=== PATIENT | male | born 1985 | race African-American/Black ===

== ENCOUNTER 2017-10-19 10:52 | Emergency (ER) | payer BC ==
[2017-10-19] MEDS ORDERED: KETOROLAC TROMETHAMINE 60 MG/2 ML VIAL IM ONE ×2 (11:21→11:54)
--- NOTE | 2017-10-19 11:24 | ERNOTE ---
Lower Extremity HPI - Narrative Date of Service: 10/19/17 - General Lower Extremities Pain: leg: left Time Seen by Provider: 10/19/17 11:12 Source: patient Exam Limitations: no limitations - Immun/Allergies/Home Medications Immunizations: IMMUNIZATION HX Immunizations Up to Date Yes History of Influenza Vaccine No Hx Pneumococcal Vaccination No Allergies/Adverse Reactions: Allergies Allergy/AdvReac Type Severity Reaction Status Date / Time No Known Allergies Allergy Unverified 10/19/17 11:04 Home Medications: HOME MEDICATIONS Cyclobenzaprine HCl [Flexeril] 10 mg PO TID PRN #30 tab 10/19/17 [Last Taken Unknown] Lisinopril [Zestril] 10 mg PO DAILY 10/19/17 [Last Taken Unknown] Naproxen [Naprosyn] 500 mg PO BID PRN #60 tab 10/19/17 [Last Taken Unknown] - History of Present Illness Narrative: Pt. comes in with c/o L post calf pain for 2 days. Pt. states that he was walking and felt a pop in his calf 2 days ago and states that there has been pain ever since when he moves his foot or walks. Pt. states that rest completely alleviates the pain. Pt. denies any prehospital treatment. Location of Incident: home Method of Injury: Reports: no apparent injury Modifying Factors - (Improves): Reports: rest Modifying Factors - (Worsens): Reports: movement Associated Symptoms: Reports: popping sensation Other Injuries: Reports: none Subsequent Symptoms: Denies: sensory loss, numbness, motor loss Prior Treament: Denies: recently seen, treated by physician, recently hospitalized, similar symptoms before, currently on antibiotics Review of Systems - Review of Systems Constitutional: Present: no symptoms reported. Absent: fever, chills, weakness , fatigue, malaise EYE: Present: no symptoms reported ENT: Present: no symptoms reported Respiratory: Present: no symptoms reported. Absent: shortness of breath, cough , wheezing Cardiology: Present: no symptoms reported. Absent: chest pain, palpitations, edema Gastrointestinal/Abdominal: Present: no symptoms reported Genitourinary: Present: no symptoms reported Musculoskeletal: Present: muscle pain - L calf. Absent: back pain Skin: Present: no symptoms reported Neurological: Present: no symptoms reported Endocrine: Present: no symptoms reported All Other Systems: All systems neg except as marked - Patient's Past Medical History Patient History - Medical: Seizures Patient History - Cardiac/Respiratory: Hypertension Patient History - Cancer: No Hx of Cancer Patient History - Surgical Procedures: No surgical history Patient History - Other: None - Social History Living Situations: home Psych History: No pertinent hx Smoking Status: Current every day smoker Alcohol Use: occasionally Drug Use: none - Immunizations Immunizations Up to Date: Yes Hx Pneumococcal Vaccination: No History of Influenza Vaccine: No Physical Exam - Physical Exam General Appearance: Present: wd/wn, alert, no apparent distress Head Exam: Present: normal inspection, no evidence of injury Eye Exam: Normal inspection: bilateral Ears, Nose, Throat: Present: normal ENT inspection Neck: Present: normal inspection, nontender, supple, full range of motion Respiratory: Present: no respiratory distress, normal breath sounds, no accessory muscle use, chest nontender, lungs clear Cardiovascular/Chest: Present: regular rate, rhythm, no murmur, normal peripheral pulses Back Exam: Present: normal inspection Extremity Exam: Present: calf tenderness - mid calf tenderness, pain with flexion of foot, trace lower leg swelling, no deformity of gastroc Neurological Exam: Present: alert, oriented, normal mood/affect, no motor/ sensory deficits Skin Exam: Present: normal color, warm/dry ED Progress - Vital Signs Patient's Vital Signs:: I have reviewed the patient's vital signs. Vital Signs: Vital Signs 10/19/17 11:00 Temperature 36.9 C Pulse Rate 81 Respiratory 15 Rate Blood Pressure 130/89 O2 Sat by Pulse 94 Oximetry - CT/Ultrasound CT/Ultrasound Narrative: US negative for DVT - Progress/Reassessment Chief Complaint: Lower Extremity Pain/ Injury Progress:: Improved Departure Clinical Impression: Gastrocnemius muscle strain Qualifiers: Encounter type: initial encounter Laterality: left Qualified Code(s): S86.112A - Strain of other muscle(s) and tendon(s) of posterior muscle group at lower leg level, left leg, initial encounter - Departure Disposition: Home self-care Condition: Good Instructions: RICE for Routine Care of Injuries, [id number], Muscle Strain, [id number], Form - Excuse from Work, School, or Physical Activity Additional Instructions: Please keep leg wrapped and use crutches for support when walking, may put toe down for balance but no putting weight on it for a week. If not improved after a week you need to contact orthopedist for follow up. Prescriptions: Cyclobenzaprine HCl [Flexeril] 10 mg PO TID PRN #30 tab PRN Reason: MUSCLE SPASMS Naproxen [Naprosyn] 500 mg PO BID PRN #60 tab PRN Reason: Pain
[2017-10-19 12:37] VITALS: BP 141/90
== END 2017-10-19 12:40 | disposition home or self-care (01) ==
LOC: ER 10:52
DX: S86.112A Strain of other muscle(s) and tendon(s) of posterior muscle group at lower leg level, left leg, initial encounter (principal); I10 Essential (primary) hypertension; F17.200 Nicotine dependence, unspecified, uncomplicated; X50.1XXA Overexertion from prolonged static or awkward postures, initial encounter; Y93.01 Activity, walking, marching and hiking; Y92.009 Unspecified place in unspecified non-institutional (private) residence as the place of occurrence of the external cause